=== PATIENT | male | born 1970 | race Caucasian/White ===

== ENCOUNTER 2018-04-15 13:08 | Observation (INO) ==
[2018-04-15] MEDS ORDERED: Nitroglycerin 0.4 MG TAB.SUBL SL PRN (13:36)
[2018-04-15] MEDS ORDERED: Aspirin 81 MG TAB.CHEW PO ONE (13:36)
[2018-04-15 13:55] LABS: Basophils # 0.1 K/mcL (0.0-0.2); Basophils % 0.9 %; Eosinophils # 0.1 K/mcL (0.0-0.6); Eosinophils % 0.9 %; Hematocrit 46.9 % (37.5-50.1); Hemoglobin 16.2 g/dL (12.9-16.9); Immature Granulocytes % 0.3 % (0-4); Lymphocytes % 28.6 %; Mean Corpuscular HGB Conc 34.5 g/dL (31.6-35.5); Mean Corpuscular Hemoglobin 29.9 pg (28.0-33.3); Mean Corpuscular Volume 86.7 fL (83.0-100.0); Mean Platelet Volume 8.8 fL (9.4-12.4); Monocytes # 0.7 K/mcL (0.0-1.3); Monocytes % 10.2 %; Neutrophils # 4.1 K/mcL (1.6-8.9); Platelet Count 254 K/mcL (140-400); Red Blood Count 5.41 M/mcL (4.19-5.50); Red Cell Distribution Width 13.5 % (11.5-14.5); Segmented Neutrophils % 59.1 %
[2018-04-15 14:17] LABS: BUN/Creatinine Ratio 17 (6-26); Blood Urea Nitrogen 19 mg/dL (6-20); Calcium 9.7 mg/dL (8.6-10.3); Carbon Dioxide 24 mEq/L (23-29); Chloride 102 mEq/L (98-107); Glucose 115 mg/dL (70-105); Osmolality,Calculated 281 (280-300); Potassium 4.5 mEq/L (3.5-5.1); Sodium 134 mEq/L (136-145); Troponin I < 0.03 ng/mL (< 0.04); eGFR For Non-African Americans > 60 (> 60)
--- NOTE | 2018-04-15 14:21 | Emergency Department Note ---
Disposition Clinical Impression: Chest pain Qualifiers: Chest pain type: unspecified Qualified Code(s): R07.9 - Chest pain, unspecified Disposition: Admitted As Inpatient Condition: Good Forms: ED Satisfaction Letter Time of Disposition: 15:45 Chest Pain HPI - General Chief Complaint: ED Chest Pain Stated Complaint: chest pain Time Seen by Provider: 04/15/18 13:15 Source: patient Mode of arrival: ambulatory Limitations: no limitations Vital Signs Reviewed: Yes Nursing Notes Reviewed: Yes - History of Present Illness HPI Narrative: 47 yo male presents from home with the complaint of chest pain. He sees Dr. Marlene Mahmood for cardiology and has been diagnosed with stable angina with a negative stress test done last year. He states his intermittent chest pain has been getting more frequent and severe over the past few weeks. He states today he was having some chest pain this morning with left arm numbness and tightness. He took a SL nitro and baby aspirin which helped his chest pain but did not rel trey his arm tightness. After resting he tried doing some house work which caused his chest pain to come back. He has felt nauseous and vomited once. He is currently chest pain free and denies diaphoresis, abdominal pain. His arm is still tight. He was seen here two days ago for this same problem and had a normal cardiac workup and was sent home to follow up with Cardiology. Severity scale (1-10): 1 - Related Data Home Medications Medication Instructions Recorded Confirmed Ferrous Sulfate 325 mg PO BIDWM 03/14/15 04/25/15 Gabapentin [Neurontin] 100 mg PO TID 03/14/15 10/27/15 HydrOXYzine 50 mg PO Q8H PRN 03/14/15 10/27/15 OLANZapine [Zyprexa] 20 mg PO DAILY 03/14/15 10/27/15 Quetiapine Fumarate [SEROquel] 100 mg PO HS PRN 03/14/15 10/27/15 Previous Rx's Medication Instructions Recorded Folic Acid 1 mg PO DAILY #90 tablet 07/27/15 Allergies Allergy/AdvReac Type Severity Reaction Status Date / Time No Known Allergies Allergy Verified 03/14/15 08:54 All systems ED: reviewed and negative except as stated. Review of Systems: As Per HPI Constitutional: Denies: fever, chills, weakness Eyes: Denies: vision change Cardiovascular: Reports: chest pain. Denies: palpitations, dyspnea on exertion, edema, syncope Respiratory: Denies: cough, dyspnea, wheezes Gastrointestinal: Reports: nausea, vomiting. Denies: abdominal pain, diarrhea, constipation Genitourinary: Denies: dysuria Musculoskeletal: Denies: back pain, neck pain Integumentary: Denies: rash Neurological: Denies: headache, weakness, numbness Psychiatric: Denies: anxiety Endocrine: Denies: fatigue Chest Pain PMH - Past Medical History Medical history: Reports: hypertension Psychiatric history: Reports: no psych history - Social History Smoking Status: Former smoker Alcohol use: Reports: none Drug use: Reports: none Physical Exam - General Limitations: no limitations General appearance: alert, in no apparent distress - Head Head exam: atraumatic, normocephalic - Eye Eye exam: Present: normal appearance, PERRL, EOMI - ENT ENT exam: normal exam, normal oropharynx, mucous membranes moist - Neck Neck exam: Present: normal inspection. Absent: tenderness, meningismus, lymphadenopathy - Chest Chest inspection: Present: normal inspection, symmetric chest wall rise, tenderness - Respiratory Respiratory exam: Present: normal lung sounds bilaterally. Absent: wheezes, stridor - Cardiovascular Cardiovascular exam: Present: regular rate, normal rhythm - Abdominal Exam Abdominal exam: Present: soft, Non-Tender. Absent: distention, guarding, rebound, rigidity - Extremities Exam Extremities exam: Present: normal inspection. Absent: tenderness, pedal edema - Neurological Exam Neurological exam: Present: alert, oriented X3, CN II-XII intact - Psychiatric Psychiatric exam: Present: anxious, flat affect - Skin Skin exam: Present: warm, dry, intact Course Vital Signs Temperature 97.6 F 04/15/18 13:10 Pulse Rate 70 04/15/18 13:10 Respiratory Rate 14 04/15/18 13:10 Blood Pressure 125/85 04/15/18 13:10 O2 Sat by Pulse Oximetry 95 04/15/18 13:10 Temperature 97.6 F 04/15/18 13:28 Pulse Rate 71 04/15/18 14:08 Respiratory Rate 14 04/15/18 14:08 Blood Pressure 123/93 04/15/18 14:08 O2 Sat by Pulse Oximetry 97 04/15/18 14:08 Oxygen Delivery Oxygen Delivery Room Air Chest Pain - MDM Narrative Medical decision making narrative: This patient has a history of stable angina with a negative workup 2 days ago. Will do another ACS workup and contact cardiology to discuss further treatment. 1510 - EKG unchanged. Lab work wnl. CXR shows no cardiopulmonary disease. Will repeat EKG as pt is still having chest pain. Call out to cardio has been placed. 1545 - Dr. Mahmood was informed of this patient and wishes to have him admitted to be seen tomorrow for evaluation for diagnostic cath. Dr. Sena has accepted the patient. Pt agrees with POC. - Medical Records Medical records reviewed: Yes I reviewed the patient's medical records. - Lab Data Lab results reviewed: Yes I reviewed the patient's lab results. Result diagrams: 04/15/18 13:36 04/15/18 13:30 Lab Results 04/15/18 04/15/18 Range/Units 13:30 13:36 WBC 6.9 (4.3-11.1) K/mcL RBC 5.41 (4.19-5.50) M/mcL Hgb 16.2 (12.9-16.9) g/dL Hct 46.9 (37.5-50.1) % MCV 86.7 (83.0-100.0) fL MCH 29.9 (28.0-33.3) pg MCHC 34.5 (31.6-35.5) g/dL RDW 13.5 (11.5-14.5) % Plt Count 254 (140-400) K/mcL MPV 8.8 L (9.4-12.4) fL Immature Gran % 0.3 (0-4) % Seg Neutrophils % 59.1 % Lymphocytes % 28.6 % Monocytes % 10.2 % Eosinophils % 0.9 % Basophils % 0.9 % Neutrophils # 4.1 (1.6-8.9) K/mcL Lymphocytes # 2.0 (0.6-4.6) K/mcL Monocytes # 0.7 (0.0-1.3) K/mcL Eosinophils # 0.1 (0.0-0.6) K/mcL Basophils # 0.1 (0.0-0.2) K/mcL Sodium 134 L (136-145) mEq/L Potassium 4.5 (3.5-5.1) mEq/L Chloride 102 (98-107) mEq/L Carbon Dioxide 24 (23-29) mEq/L BUN 19 (6-20) mg/dL Creatinine 1.15 (0.70-1.30) mg/dL Est GFR ( Amer) > 60 (> 60) Est GFR (Non-Af Amer) > 60 (> 60) BUN/Creatinine Ratio 17 (6-26) Glucose 115 H (70-105) mg/dL Calculated Osmolality 281 (280-300) Calcium 9.7 (8.6-10.3) mg/dL Troponin I < 0.03 (< 0.04) ng/mL - Radiology Data Radiology results reviewed: Yes I reviewed the patient's radiology results. - EKG Data EKG attestation: Yes I reviewed and interpreted this EKG. EKG results narrative: EKG done at 1336 on 04/15/2018 HR 64 bpm, DC interval 170, QRS duration 84, QT 386, QTc 399 Sinus rhythm without any ST segment elevations or depressions. No eveidence of acute ischemia or arrythmias. Unchanged from EKG done on 04/13/2018. Heart Score - Score History: Moderately Suspicious EKG: Normal Age: 45-65 Risk Factors: Equal/Greater than 3 risk factor or history of atherosclerotic disease Troponin: Less than normal limit HEART Score Total: 4
[2018-04-15] MEDS ORDERED: traMADol 50 MG TABLET PO PRN (16:04)
[2018-04-15] MEDS ORDERED: Naloxone 0.4 MG/ML INJ IVP PRN (16:04)
[2018-04-15 16:31] LABS: Alanine Aminotransferase 69 Units/L (7-52); Albumin 4.4 g/dL (3.5-5.7); Albumin/Globulin Ratio 1.3 (1.1-2.2); Alkaline Phosphatase 62 Units/L (34-104); Aspartate Amino Transferase 30 Units/L (13-39); Bilirubin,Direct 0.1 mg/dL (0.0-0.2); Bilirubin,Indirect 0.4 mg/dL (0.0-1.2); Bilirubin,Total 0.5 mg/dL (0.3-1.0); Chol/HDL Ratio 5.8 (0-4.9); Cholesterol 208 mg/dL (< 200); Globulin 3.4 g/dL (2.4-3.5); HDL Cholesterol 36 mg/dL (40-59); LDL Cholesterol,Calculated 149 mg/dL (0-99); Phosphorous 2.4 mg/dL (2.7-4.5); Total Protein 7.8 g/dL (6.4-8.9); Triglycerides 113 mg/dL (< 150)
--- NOTE | 2018-04-15 16:38 | Electrocardiograph Report ---
[place] [facility] Test Date: 2018-04-15 Pat Name: Ross Hernandez Department: EXAMC5 Room: 3B34 Gender: M Qualification Engineer: : 1970 Requested By: Ksenia Lira Order Number: [id number] Reading MD: Familia Dozier Measurements Intervals [place] Rate: 64 P: 43 [place]: 170 QRS: 45 QRSD: 84 T: 19 QT: 386 QTc: 399 Interpretive Statements Sinus rhythm Electronically Signed On 04-15-2018 16:36:50 EST by Familia Dozier
--- NOTE | 2018-04-15 16:43 | Internal Med History&Physical ---
Date of Encounter: 04/15/18 Time of Encounter: 16:33 Internal Medicine - H&P: HPI Chief complaint: chest pain Plans for Post Hospital Care: Home History of present illness: Mr. Hernandez is a 47 year old male PMH of HTN, pre-diabetes, GERD and dep ression. Patient presented to the ED due to a week long history of chest pain. Patient reports that for the past week he has been having pressure like, 8/10, retrosternal chest pain, radiating to his left shoulder, associated with shortness of breath, lasting about 20 minutes and alleviated by Nitroglycerin SubL. He reports that he has been to the ED about 5 times this week for the same complain. Today he decided to come back to the ED because the pain lasted more than 30 minutes, was not alleviated by nitroglycerin SubL and was associated with diaphoresis, numbness and tingling of the left upper extremities. He denies nausea or vomiting. Denies recreational drug use, as well alcohol, or tobacco abuse. Past Med Surg Social Fam HX - Past Medical History Medical history: hypertension Psychiatric history: no psych history - Social History Smoking Status: Former smoker Smokeless Tobacco Status: No Alcohol use: none Drug use: none Internal Medicine - H&P: Meds Ferrous Sulfate 325 mg PO BIDWM 03/14/15 [History] Gabapentin [Neurontin] 100 mg PO TID 03/14/15 [History] HydrOXYzine 50 mg PO Q8H PRN 03/14/15 [History] OLANZapine [Zyprexa] 20 mg PO DAILY 03/14/15 [History] Quetiapine Fumarate [SEROquel] 100 mg PO HS PRN 03/14/15 [History] Folic Acid 1 mg PO DAILY #90 tablet 07/27/15 [Rx] Allergy/AdvReac Type Severity Reaction Status Date / Time No Known Allergies Allergy Verified 03/14/15 08:54 All Systems PM: A 10-system review of systems was performed and is negative for pertinent findings except as documented above in the HPI. - Constitutional Constitutional: no chills, no falls, no lethargy, no weakness, no weight gain, no weight loss - EENT Eyes: no decreased night vision, no diplopia, no dry eye, no pain - Cardiovascular Cardiovascular ROS IM: chest pain, diaphoresis, no claudication, no dyspnea on exertion, no edema, no irregular heart rhythm, no lightheadedness, no orthopnea, no palpitations, no paroxysmal nocturnal dyspnea - Respiratory Respiratory: no cough, no wheezing, no snoring, no pain on inspiration - Gastrointestinal Gastrointestinal: constipation, no abdominal pain, no diarrhea, no loose stools, no odynophagia - Genitourinary Genitourinary ROS male: no dysuria, no urinary frequency, no urinary hesitancy, no urinary incontinence, no urinary urgency - Musculoskeletal Musculoskeletal ROS IM: no atrophy, no back pain - Integumentary Integumentary IM: no erythema - Neurological Neurological ROS: no lack of coordination, no vertigo, no weakness - Psychiatric Psychiatric: no anxiety, no hallucinations, no homicidal ideation - Endocrine Endocrine IM: no fatigue, no flushing, no polydipsia, no polyphagia, no polyuria - Hematologic/Lymphatic Hematologic/Lymphatic: no lymphadenopathy - Allergic/Immunologic Allergic/Immunologic: no wheezing Additional comments: Rest of the review of system negative. - Constitutional Vitals: Temp Pulse Resp BP Pulse Ox 97.6 F 59 14 116/79 98 04/15/18 13:28 04/15/18 15:21 04/15/18 15:21 04/15/18 15:21 04/15/18 15:21 General appearance: Present: A&O X 2 Exam: Vitals: Reviewed General: Alert and oriented x4. Mild distress due to chest pain. Skin: Normal color, no rash, no lesions. HEENT: EOM, pupils equal, round and reactive. Cardiovascular: RRR, Normal S1 & S2, no rubs, murmurs or gallops. Lungs: CTA b/l, no wheezes or crackles. Abdomen: Soft, non-tender, no rigidity. Extremities: No deformity, no edema or tenderness, no joint swelling or clubbi ng. strength 5/5 in the upper and lower extr b/l. Neurological: Normal cognition and motor skills. Rest of the physical exam is non contributory Internal Med - H&P Results - Labs CBC & Chem 7: 04/15/18 13:36 04/15/18 13:30 Labs: Short CBC 04/15/18 Range/Units 13:36 WBC 6.9 (4.3-11.1) K/mcL Hgb 16.2 (12.9-16.9) g/dL Hct 46.9 (37.5-50.1) % Plt Count 254 (140-400) K/mcL Neutrophils # 4.1 (1.6-8.9) K/mcL BMP 04/15/18 13:30 Sodium 134 L Potassium 4.5 Chloride 102 Carbon Dioxide 24 BUN 19 Creatinine 1.15 Glucose 115 H Calcium 9.7 Cardiac Enzymes 04/15/18 Range/Units 13:30 Troponin I < 0.03 (< 0.04) ng/mL Liver Function 04/15/18 Range/Units 13:30 Total Bilirubin 0.5 (0.3-1.0) mg/dL Direct Bilirubin 0.1 (0.0-0.2) mg/dL AST 30 (13-39) Units/L ALT 69 H (7-52) Units/L Alkaline Phosphatase 62 (34-104) Units/L Albumin 4.4 (3.5-5.7) g/dL - Impressions ITS Impressions Chest X-Ray 04/15/18 13:35 IMPRESSION: Clear appearing lungs. Low lung volumes. No acute abnormality. D/ / Amandeep Nguyen MD / Amandeep Nguyen MD Interpreting Provider: Amandeep Nguyen MD - Diagnostic Studies Chest x-ray Status: image reviewed by me Additional comments: No abnormalities - Assessment and plan (1) Chest pain Current Visit: Yes Status: Acute Assessment and plan: Patient with chest pain, with multiple cardiovascular risk factors. will place patient under observation started on a bb Aspirin 325mg/PO x1 given, followed by aspirin 81mg/PO daily lipid panel Nuclear stress test order urine drug screen Limited TTE to evaluate wall motion abnormalities and valvular disfunction serial troponins will consider cardiology consult pending ischemic work up result. Nitroglycerin 0.4mg SubL Q5min x3 for chest pain tramadol 50mg/PO Q6HR PRN atorvastatin 40mg/PO daily Qualifiers: Chest pain type: unspecified Qualified Code(s): R07.9 - Chest pain, unspecified (2) Hypertension Current Visit: Yes Status: Chronic Assessment and plan: will resume home medication. Patient on Metoprolol 50mg/PO daily Qualifiers: Hypertension type: unspecified Qualified Code(s): I10 - Essential (primary) hypertension (3) DVT prophylaxis Current Visit: Yes Status: Acute Assessment and plan: started on Heparin 5000 units SubQ Q8HRs - Time Spent With Patient Total time spent is greater than 50% in coordination of care (as documented) at patient's floor/unit and/or counseling patient: Greater than 35 minutes (40)
[2018-04-15 17:05] LABS: Estimated Average Glucose 128 mg/dl; Hemoglobin A1C 6.1 %
[2018-04-15] MEDS: Metoprolol XL (24 HR) Succ 50 MG TAB.ER.24H PO SCH (17:33)
--- NOTE | 2018-04-15 17:34 | Emergency Department Note ---
Disposition Clinical Impression: Chest pain Qualifiers: Chest pain type: unspecified Qualified Code(s): R07.9 - Chest pain, unspecified Disposition: Admitted As Inpatient Condition: Good General Adult HPI - General Chief complaint: ED Chest Pain Stated complaint: chest pain Time Seen by Provider: 04/15/18 13:15 Source: patient Mode of arrival: ambulatory Limitations: no limitations - History of Present Illness Pain Scale: 1 - Related Data Home Medications Medication Instructions Recorded Confirmed Ferrous Sulfate 325 mg PO BIDWM 03/14/15 04/25/15 Gabapentin [Neurontin] 100 mg PO TID 03/14/15 10/27/15 HydrOXYzine 50 mg PO Q8H PRN 03/14/15 10/27/15 OLANZapine [Zyprexa] 20 mg PO DAILY 03/14/15 10/27/15 Quetiapine Fumarate [SEROquel] 100 mg PO HS PRN 03/14/15 10/27/15 Previous Rx's Medication Instructions Recorded Folic Acid 1 mg PO DAILY #90 tablet 07/27/15 Allergies Allergy/AdvReac Type Severity Reaction Status Date / Time No Known Allergies Allergy Verified 03/14/15 08:54 Constitutional: Denies: fever, chills, weakness Eyes: Denies: vision change Cardiovascular: Reports: chest pain. Denies: palpitations, dyspnea on exertion, edema, syncope Respiratory: Denies: cough, dyspnea, wheezes Gastrointestinal: Reports: nausea, vomiting. Denies: abdominal pain, diarrhea, constipation Genitourinary: Denies: dysuria Musculoskeletal: Denies: back pain, neck pain Integumentary: Denies: rash Neurological: Denies: headache, weakness, numbness Psychiatric: Denies: anxiety Endocrine: Denies: fatigue Past Medical History - Past Medical History Medical history: Reports: hypertension Psychiatric history: Reports: no psych history - Social History Smoking Status: Former smoker Smokeless Tobacco Status: No Alcohol use: Reports: none Drug use: Reports: none Physical Exam - General Limitations: no limitations General appearance: alert, in no apparent distress Course Vital Signs Temperature 97.6 F 04/15/18 13:10 Pulse Rate 70 04/15/18 13:10 Respiratory Rate 14 04/15/18 13:10 Blood Pressure 125/85 04/15/18 13:10 O2 Sat by Pulse Oximetry 95 04/15/18 13:10 Temperature 98.3 F 04/15/18 16:51 Pulse Rate 63 04/15/18 16:51 Respiratory Rate 16 04/15/18 16:51 Blood Pressure 117/83 04/15/18 16:51 O2 Sat by Pulse Oximetry 95 04/15/18 16:51 Oxygen Delivery Oxygen Delivery Room Air Medical Decision Making - Lab Data Result diagrams: 04/15/18 13:36 04/15/18 13:30 Lab Results 04/15/18 04/15/18 Range/Units 13:30 13:36 WBC 6.9 (4.3-11.1) K/mcL RBC 5.41 (4.19-5.50) M/mcL Hgb 16.2 (12.9-16.9) g/dL Hct 46.9 (37.5-50.1) % MCV 86.7 (83.0-100.0) fL MCH 29.9 (28.0-33.3) pg MCHC 34.5 (31.6-35.5) g/dL RDW 13.5 (11.5-14.5) % Plt Count 254 (140-400) K/mcL MPV 8.8 L (9.4-12.4) fL Immature Gran % 0.3 (0-4) % Seg Neutrophils % 59.1 % Lymphocytes % 28.6 % Monocytes % 10.2 % Eosinophils % 0.9 % Basophils % 0.9 % Neutrophils # 4.1 (1.6-8.9) K/mcL Lymphocytes # 2.0 (0.6-4.6) K/mcL Monocytes # 0.7 (0.0-1.3) K/mcL Eosinophils # 0.1 (0.0-0.6) K/mcL Basophils # 0.1 (0.0-0.2) K/mcL Sodium 134 L (136-145) mEq/L Potassium 4.5 (3.5-5.1) mEq/L Chloride 102 (98-107) mEq/L Carbon Dioxide 24 (23-29) mEq/L BUN 19 (6-20) mg/dL Creatinine 1.15 (0.70-1.30) mg/dL Est GFR ( Amer) > 60 (> 60) Est GFR (Non-Af Amer) > 60 (> 60) BUN/Creatinine Ratio 17 (6-26) Glucose 115 H (70-105) mg/dL Calculated Osmolality 281 (280-300) Calcium 9.7 (8.6-10.3) mg/dL Phosphorus 2.4 L (2.7-4.5) mg/dL Magnesium 2.0 (1.6-2.6) mg/dL Total Bilirubin 0.5 (0.3-1.0) mg/dL Direct Bilirubin 0.1 (0.0-0.2) mg/dL Indirect Bilirubin 0.4 (0.0-1.2) mg/dL AST 30 (13-39) Units/L ALT 69 H (7-52) Units/L Alkaline Phosphatase 62 (34-104) Units/L Troponin I < 0.03 (< 0.04) ng/mL Serum Total Protein 7.8 (6.4-8.9) g/dL Albumin 4.4 (3.5-5.7) g/dL Globulin 3.4 (2.4-3.5) g/dL Albumin/Globulin Ratio 1.3 (1.1-2.2) Triglycerides 113 (< 150) mg/dL Cholesterol 208 H (< 200) mg/dL LDL Cholesterol, Calc 149 H (0-99) mg/dL VLDL Cholesterol, Calc 23 (< 31) mg/dL HDL Cholesterol 36 L (40-59) mg/dL Cholesterol/HDL Ratio 5.8 H (0-4.9) Attestation Statement - Attestation Attestation: I examined this patient and my medical decision-making [facility]. I agree with the documented findings, disposition and treatment plan as described except to the extent set forth below. Patient with history of 2 prior negative stress test despite recurrent chest pain, never has had a heart catheterization, presents with chest pain which is moderately suspicious for ischemia with radiation to his neck and shoulder, worse with exertion. Pain-free at the time of my evaluation. Normal EKG and negative troponin. This is a second visit in the last 48 hours. I spoke with the engagement director on-call for Dr. Mahmood, who is evaluated him in the past. Given the recurrent nature of his pain and his history of never having had his coronaries visualized by catheter, she recommended admission, serial troponins and evaluation by cardiology to assess for whether or not a catheterization would be indicated. Accepted by hospitalist.
[2018-04-15 18:56] LABS: Amphetamine Screen,Urine Negative ng/mL (Cutoff=1000); Barbiturate Screen,Urine Negative ng/mL (Cutoff=200); Benzodiazepines Screen,Urine Negative ng/mL (Cutoff=200); Cannabinoid Screen,Urine Negative ng/mL (Cutoff = 50); Cocaine Screen,Urine Negative ng/mL (Cutoff= 300); Opiate Screen,Urine Negative ng/mL (Cutoff=300); Phencyclidine Screen,Urine Negative ng/mL (Cutoff=25)
[2018-04-15] MEDS: *HR* Heparin 5,000 UNIT/ML VIAL SQ SCH (20:43)
[2018-04-15] MEDS ORDERED: hydrOXYzine pamoate 25 MG CAPSULE PO PRN (21:04)
[2018-04-15] MEDS ORDERED: *HR* LORazepam 0.5 MG TABLET PO PRN (21:04)
[2018-04-16 01:48] LABS: BUN/Creatinine Ratio 16 (6-26); Blood Urea Nitrogen 17 mg/dL (6-20); Calcium 9.1 mg/dL (8.6-10.3); Carbon Dioxide 24 mEq/L (23-29); Chloride 102 mEq/L (98-107); Glucose 96 mg/dL (70-105); Osmolality,Calculated 285 (280-300); Potassium 4.3 mEq/L (3.5-5.1); Sodium 137 mEq/L (136-145); eGFR For Non-African Americans > 60 (> 60)
[2018-04-16 04:02] VITALS: BP 114/67
[2018-04-16] MEDS: *HR* Heparin 5,000 UNIT/ML VIAL SQ SCH (05:30)
[2018-04-16] MEDS ORDERED: Regadenoson 0.4 MG/5 ML SYRINGE IVP ONE (05:40)
[2018-04-16] MEDS ORDERED: Famotidine 20 MG TABLET PO SCH (07:30)
[2018-04-16] MEDS ORDERED: OLANZapine 10 MG TAB.RAPDIS PO SCH (09:00)
[2018-04-16] MEDS ORDERED: Aspirin Enteric Coated 81 MG Tablet PO SCH (09:00)
[2018-04-16] MEDS: Metoprolol XL (24 HR) Succ 50 MG TAB.ER.24H PO SCH (09:24)
--- NOTE | 2018-04-16 12:00 | Discharge Summary ---
- NOTES TO OUTPATIENT PROVIDER Notes to Outpatient Provider: Presented with chest pressure off and on for a week as well as left arm pain. Troponins negative [address]-T wave abnormalities he did undergo cardiac stress test which was negative for any ischemia or infarct-patient does admit to back pain and does need a back hipolito angelo. Advised patient to follow-up with PCP as well as cardiology and spinal surgeon Orders not resulted at time of discharge: Pending orders 04/16/18 05:27 NM felicia perf SPECT multi [NM] Routine Date of Encounter: 04/16/18 Time of Encounter: 12:00 - Discharge Diagnosis (1) Chest pain Priority: Primary Status: Acute Qualifiers: Chest pain type: unspecified Qualified Code(s): R07.9 - Chest pain, unspecified (2) Hypertension Priority: Secondary Status: Chronic Qualifiers: Hypertension type: unspecified Qualified Code(s): I10 - Essential (primary) hypertension (3) DVT prophylaxis Priority: Secondary Status: Acute Hospital course: Mr. Hernandez is a 47 year old male past medical history of hypertension prediabetes GERD and depression. Patient presented after experiencing chest pain radiating to left shoulder off and on for one week as well as left arm pain numbness and tingling. Troponins were negative [address]-T wave abnormalities. Underwent cardiac stress test which was negative for any ischemia or infarct echo was completed EF of 60% and normal LV chamber size normal right ventricular structure and function normal size aortic root. Patient has not had any more chest pain during this admission. Patient does admit that he does have history of GERD and has not been taking medication. Advised patient to follow-up with PCP schedule EGD as outpatient. Patient also admits that he does have neck and back pain and is to undergo spinal surgery. Patient does have pain in left arm and shoulder upon movement and raising arm. Advised patient to follow-up with spinal surgeon as outpatient. Also advised patient follow-up with cardiology. Patient verbalized understanding currently he is hemodynamically stable and is chest pain-free he is ready for discharge. - Time Spent with Patient Total time spent providing and/or coordinating discharge services: - Discharge Medications Home Medications: HydrOXYzine 50 mg PO Q8H PRN 03/14/15 [History] OLANZapine [Zyprexa] 20 mg PO DAILY 03/14/15 [History] Quetiapine Fumarate [Seroquel] 100 mg PO HS PRN 03/14/15 [History] LORazepam [Ativan] 0.5 mg PO BID PRN 04/15/18 [History] Metoprolol [Lopressor] 50 mg PO BID 04/15/18 [History] Promethazine HCl 25 mg PO BID 04/15/18 [History] Ranitidine HCl [Heartburn Relief] 150 mg PO BID 04/15/18 [History] Cholecalciferol (Vitamin D3) [Vitamin D3] 10,000 unit PO DAILY 04/16/18 [History] Allergies/Adverse Reactions: Allergy/AdvReac Type Severity Reaction Status Date / Time No Known Allergies Allergy Verified 03/14/15 08:54 Date of admission: 04/15/18 15:34 Primary care physician: Teri Alcala MD Discharging clinician: Ciara Erazo Anticipated date of discharge: 04/16/18 - Constitutional Vitals: Temp Pulse Resp BP Pulse Ox 98.0 F 63 16 114/67 94 04/16/18 03:59 04/16/18 03:59 04/16/18 03:59 04/16/18 03:59 04/16/18 03:59 General appearance: Present: A&O X 2 Exam: GENERAL: Pleasant cooperative alert and oriented 3 HEENT: Head is normocephalic and atraumatic. Extraocular muscles are intact. Pupils are equal, round, and reactive to light and accommodation. NECK: Supple. No carotid bruits. No lymphadenopathy or thyromegaly. LUNGS: CTA, symmetrical expansion. Respirations easy and unlabored HEART: Regular rate and rhythm, S1, S2 without murmur. ABDOMEN: Soft, nontender, and nondistended. Positive bowel sounds. No hepatosplenomegaly was noted. EXTREMITIES: Without any cyanosis, clubbing, rash, lesions or edema. NEUROLOGIC: Cranial nerves II through XII are grossly intact. PSYCHIATRIC: Appropriate affect, denies SI/HI, without agitation or anxiety SKIN: No ulceration or induration present. - Patient Status Disposition: Home, Self-Care Condition: Good Functional capacity at discharge: independent ambulation Overall status at discharge: patient is back to baseline - Discharge Instructions Instructions: Chest Pain (DC) Follow Up With: Teri Alcala MD [Primary Care Provider] - 04/23/18 9:20 am - Diet and Activity Activity: increase activity as tolerated Diet: advance to your usual diet
--- NOTE | 2018-04-16 12:30 | Electrocardiograph Report ---
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
== END 2018-04-16 15:20 | disposition home or self-care (01) ==
LOC: EMEROOARM 13:08 → 3BNU 13:08
PROVIDERS: ADMIT Internal Medicine; ATTEND Internal Medicine

== ENCOUNTER 2018-04-20 17:29 | Observation (INO) ==
--- NOTE | 2018-04-20 18:08 | Emergency Department Note ---
Disposition Clinical Impression: Unstable angina Chest pain Qualifiers: Chest pain type: unspecified Qualified Code(s): R07.9 - Chest pain, unspecified Disposition: Admitted As Inpatient Condition: Undetermined Instructions: Chest Pain (ED) Forms: ED Satisfaction Letter Time of Disposition: 19:32 Chest Pain HPI - General Chief Complaint: ED Chest Pain Stated Complaint: chest pain Time Seen by Provider: 04/20/18 17:33 - History of Present Illness HPI Narrative: 47-year-old male presenting to the emergency department for chest pain rating to his left arm. Patient was recently discharged from the hospital yesterday where he had a full chest pain workup including echocardiogram and nuclear stress test which were both normal. Patient states that he felt fine after his discharge, the day he went for a walk and during the walk he did not experience any chest pain or shortness of breath. However, when he got home and was sitting on his couch resting he experienced substernal chest pain which was dull and pressure- like radiating to his left shoulder and left arm. This was associated with shortness of breath, nausea, and diaphoresis. There was no pleuritic component to his pain, and no tenderness to palpation of the chest pain. Patient states that he does have chronic back pain however his chest pain does not radiate to his back. 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 Severity scale (1-10): 6 - Related Data Home Medications Medication Instructions Recorded Confirmed HydrOXYzine 50 mg PO Q8H PRN 03/14/15 04/16/18 OLANZapine [Zyprexa] 20 mg PO DAILY 03/14/15 04/16/18 Quetiapine Fumarate [Seroquel] 100 mg PO HS PRN 03/14/15 04/16/18 LORazepam [Ativan] 0.5 mg PO BID PRN 04/15/18 04/16/18 Metoprolol [Lopressor] 50 mg PO BID 04/15/18 04/16/18 Promethazine HCl 25 mg PO BID 04/15/18 04/16/18 Ranitidine HCl [Heartburn Relief] 150 mg PO BID 04/15/18 04/16/18 Cholecalciferol (Vitamin D3) 10,000 unit PO DAILY 04/16/18 04/16/18 [Vitamin D3] Allergies Allergy/AdvReac Type Severity Reaction Status Date / Time No Known Allergies Allergy Verified 03/14/15 08:54 Constitutional: Denies: fever, chills Eyes: Denies: vision change ENT ED: Denies: hearing loss Cardiovascular: Reports: chest pain. Denies: palpitations Respiratory: Reports: dyspnea Gastrointestinal: Reports: nausea. Denies: abdominal pain, vomiting Genitourinary: Denies: dysuria Musculoskeletal: Reports: back pain Chest Pain PMH - Past Medical History Medical history: Reports: hypertension Psychiatric history: Reports: no psych history - Social History Smoking Status: Former smoker Alcohol use: Reports: none Drug use: Reports: none Physical Exam - General Limitations: no limitations General appearance: alert, in no apparent distress - Head Head exam: atraumatic, normocephalic - Eye Eye exam: Present: normal appearance - Neck Neck exam: Present: normal inspection, trachea midline - Chest Chest inspection: Present: normal inspection, symmetric chest wall rise - Respiratory Respiratory exam: Present: normal lung sounds bilaterally. Absent: wheezes - Cardiovascular Cardiovascular exam: Present: regular rate, normal rhythm, +S1, +S2 - Abdominal Exam Abdominal exam: Present: soft, Non-Tender. Absent: guarding, rigidity - Extremities Exam Extremities exam: Present: normal inspection - Neurological Exam Neurological exam: Present: alert, oriented X3 - Psychiatric Psychiatric exam: Present: normal affect, normal mood - Skin Skin exam: Present: warm, dry, intact Course Course Narrative: 47-year-old male presented to the emergency department with substernal chest pain radiating to his left arm. Patient was recently admitted the hospital underwent full cardiac workup which was negative. Will obtain CBC, BMP, chest x-ray and troponin today. Given the patient is continuing to have chest pain symptoms and endorses that he has had prior DVTs we will obtain a d-dimer. 18:53 D-dimer was elevated with a value greater than 1100. Will obtain CTA chest. Vital Signs Temperature 97.5 F L 04/20/18 17:35 Pulse Rate 57 04/20/18 17:35 Respiratory Rate 16 04/20/18 17:35 Blood Pressure 130/78 04/20/18 17:35 O2 Sat by Pulse Oximetry 95 04/20/18 17:35 Temperature 97.5 F L 04/20/18 17:45 Pulse Rate 57 04/20/18 17:45 Respiratory Rate 16 04/20/18 17:45 Blood Pressure 130/78 04/20/18 17:45 O2 Sat by Pulse Oximetry 95 04/20/18 17:45 Oxygen Delivery Oxygen Delivery Room Air Chest Pain - MDM Narrative Medical decision making narrative: 47-year-old male presented to the emergency department for 2 hour history of chest pain. Patient was recently discharged from the hospital yesterday and during his stay he had a complete chest pain workup including echo and nuclear stress test but not cardiac catheterization. Patient presented to the emergency department today for persistent chest pain which occurred shortly after he went for a walk. This was associated with shortness of breath, nausea, and diaphoresis. Workup chest pain was negative for any acute cardiopulmonary disease. D-dimer was elevated however CTA chest was negative for any acute PE. Spoke with caramel cutter helper regarding admission and the possibility of performing cardiac catheterization, caramel cutter helper agreed that this was an acceptable next step for this patient. Patient will be admitted to the hospital in stable condition he will receive aspirin and nitroglycerin prior to his admission and we will repeat troponin. We will also begin heparin per ACS protocol per hospitalist recommendations. Chest X-Ray 04/20/18 17:33 IMPRESSION: 1. No acute abnormality. D/ / Kyle Sims MD / Kyle Sims MD Interpreting Provider: Kyle Sims MD Chest CTA 04/20/18 18:43 IMPRESSION: No evidence of pulmonary embolism or acute pulmonary abnormality. Fatty liver. D/ / Abhinav Moreno / Abhinav Moreno Interpreting Provider: Abhinav Moreno - Medical Records Medical records reviewed: Yes I reviewed the patient's medical records. - Lab Data Lab results reviewed: Yes I reviewed the patient's lab results. Result diagrams: 04/20/18 17:43 04/20/18 17:43 Lab Results 04/20/18 04/20/18 04/20/18 Range/Units 17:33 17:43 17:43 WBC 5.6 (4.3-11.1) K/mcL RBC 5.34 (4.19-5.50) M/mcL Hgb 15.7 (12.9-16.9) g/dL Hct 46.4 (37.5-50.1) % MCV 86.9 (83.0-100.0) fL MCH 29.4 (28.0-33.3) pg MCHC 33.8 (31.6-35.5) g/dL RDW 13.6 (11.5-14.5) % Plt Count 250 (140-400) K/mcL MPV 8.9 L (9.4-12.4) fL Immature Gran % 0.2 (0-4) % Seg Neutrophils % 53.6 % Lymphocytes % 32.7 % Monocytes % 10.7 % Eosinophils % 2.1 % Basophils % 0.7 % Neutrophils # 3.0 (1.6-8.9) K/mcL Lymphocytes # 1.8 (0.6-4.6) K/mcL Monocytes # 0.6 (0.0-1.3) K/mcL Eosinophils # 0.1 (0.0-0.6) K/mcL Basophils # 0.0 (0.0-0.2) K/mcL PT 10.8 (9.4-12.1) Seconds INR 1.0 D-Dimer 1112 H (0-500) ng/mLFEU Sodium 137 (136-145) mEq/L Potassium 4.3 (3.5-5.1) mEq/L Chloride 104 (98-107) mEq/L Carbon Dioxide 25 (23-29) mEq/L BUN 19 (6-20) mg/dL Creatinine 1.06 (0.70-1.30) mg/dL Est GFR ( Amer) > 60 (> 60) Est GFR (Non-Af Amer) > 60 (> 60) BUN/Creatinine Ratio 18 (6-26) Glucose 97 (70-105) mg/dL Calculated Osmolality 286 (280-300) Calcium 9.7 (8.6-10.3) mg/dL Troponin I < 0.03 (< 0.04) ng/mL - Radiology Data Radiology results reviewed: Yes I reviewed the patient's radiology results. - EKG Data EKG attestation: Yes I reviewed and interpreted this EKG. EKG results narrative: EKG shows sinus bradycardia with a heart rate of 58. Normal axis late R-wave progression. Normal OR and QT intervals. No obvious ST elevation or depressions. Sinus bradycardia otherwise normal EKG. Heart Score - Score History: Moderately Suspicious EKG: Normal Age: 45-65 Risk Factors: Equal/Greater than 3 risk factor or history of atherosclerotic disease Troponin: Less than normal limit HEART Score Total: 4
[2018-04-20 18:13] LABS: Basophils % 0.7 %; Eosinophils # 0.1 K/mcL (0.0-0.6); Eosinophils % 2.1 %; Hematocrit 46.4 % (37.5-50.1); Hemoglobin 15.7 g/dL (12.9-16.9); Immature Granulocytes % 0.2 % (0-4); Lymphocytes # 1.8 K/mcL (0.6-4.6); Lymphocytes % 32.7 %; Mean Corpuscular HGB Conc 33.8 g/dL (31.6-35.5); Mean Corpuscular Hemoglobin 29.4 pg (28.0-33.3); Mean Corpuscular Volume 86.9 fL (83.0-100.0); Mean Platelet Volume 8.9 fL (9.4-12.4); Monocytes # 0.6 K/mcL (0.0-1.3); Monocytes % 10.7 %; Platelet Count 250 K/mcL (140-400); Red Blood Count 5.34 M/mcL (4.19-5.50); Red Cell Distribution Width 13.6 % (11.5-14.5); Segmented Neutrophils % 53.6 %
[2018-04-20 18:21] LABS: Prothrombin Time 10.8 Seconds (9.4-12.1)
[2018-04-20 18:35] LABS: BUN/Creatinine Ratio 18 (6-26); Blood Urea Nitrogen 19 mg/dL (6-20); Calcium 9.7 mg/dL (8.6-10.3); Carbon Dioxide 25 mEq/L (23-29); Chloride 104 mEq/L (98-107); Glucose 97 mg/dL (70-105); Osmolality,Calculated 286 (280-300); Potassium 4.3 mEq/L (3.5-5.1); Sodium 137 mEq/L (136-145); Troponin I < 0.03 ng/mL (< 0.04); eGFR For Non-African Americans > 60 (> 60)
[2018-04-20] MEDS ORDERED: Isovue-370 500 ML INFUS..BTL IV ONE (18:43)
[2018-04-20] MEDS ORDERED: GI Cocktail 40 ML EACH PO ONE (18:52)
[2018-04-20] MEDS ORDERED: Aspirin 325 MG TABLET PO ONE (19:34)
[2018-04-20] MEDS ORDERED: Nitroglycerin 0.4 MG TAB.SUBL SL PRN ×2 (19:34→21:41)
--- NOTE | 2018-04-20 19:38 | Emergency Department Note ---
Disposition Clinical Impression: Chest pain Qualifiers: Chest pain type: unspecified Qualified Code(s): R07.9 - Chest pain, unspecified Disposition: Admitted As Inpatient Condition: Undetermined Instructions: Chest Pain (ED) Referrals: Teri Alcala MD [Primary Care Provider] - Forms: ED Satisfaction Letter General Adult HPI - General Chief complaint: ED Chest Pain Stated complaint: chest pain Time Seen by Provider: 04/20/18 17:33 Source: patient Limitations: no limitations - History of Present Illness Pain Scale: 6 - Related Data Home Medications Medication Instructions Recorded Confirmed HydrOXYzine 50 mg PO Q8H PRN 03/14/15 04/16/18 OLANZapine [Zyprexa] 20 mg PO DAILY 03/14/15 04/16/18 Quetiapine Fumarate [Seroquel] 100 mg PO HS PRN 03/14/15 04/16/18 LORazepam [Ativan] 0.5 mg PO BID PRN 04/15/18 04/16/18 Metoprolol [Lopressor] 50 mg PO BID 04/15/18 04/16/18 Promethazine HCl 25 mg PO BID 04/15/18 04/16/18 Ranitidine HCl [Heartburn Relief] 150 mg PO BID 04/15/18 04/16/18 Cholecalciferol (Vitamin D3) 10,000 unit PO DAILY 04/16/18 04/16/18 [Vitamin D3] Allergies Allergy/AdvReac Type Severity Reaction Status Date / Time No Known Allergies Allergy Verified 03/14/15 08:54 Constitutional: Denies: fever, chills Eyes: Denies: vision change ENT ED: Denies: hearing loss Cardiovascular: Reports: chest pain. Denies: palpitations Respiratory: Reports: dyspnea Gastrointestinal: Reports: nausea. Denies: abdominal pain, vomiting Genitourinary: Denies: dysuria Musculoskeletal: Reports: back pain Past Medical History - Past Medical History Medical history: Reports: hypertension Psychiatric history: Reports: no psych history - Social History Smoking Status: Former smoker Smokeless Tobacco Status: No Alcohol use: Reports: none Drug use: Reports: none Physical Exam - General Limitations: no limitations General appearance: alert, in no apparent distress Course Vital Signs Temperature 97.5 F L 04/20/18 17:35 Pulse Rate 57 04/20/18 17:35 Respiratory Rate 16 04/20/18 17:35 Blood Pressure 130/78 04/20/18 17:35 O2 Sat by Pulse Oximetry 95 04/20/18 17:35 Temperature 97.5 F L 04/20/18 17:45 Pulse Rate 57 04/20/18 17:45 Respiratory Rate 16 04/20/18 17:45 Blood Pressure 130/78 04/20/18 17:45 O2 Sat by Pulse Oximetry 95 04/20/18 17:45 Oxygen Delivery Oxygen Delivery Room Air Medical Decision Making - Lab Data Result diagrams: 04/20/18 17:43 04/20/18 17:43 Lab Results 04/20/18 04/20/18 04/20/18 Range/Units 17:33 17:43 17:43 WBC 5.6 (4.3-11.1) K/mcL RBC 5.34 (4.19-5.50) M/mcL Hgb 15.7 (12.9-16.9) g/dL Hct 46.4 (37.5-50.1) % MCV 86.9 (83.0-100.0) fL MCH 29.4 (28.0-33.3) pg MCHC 33.8 (31.6-35.5) g/dL RDW 13.6 (11.5-14.5) % Plt Count 250 (140-400) K/mcL MPV 8.9 L (9.4-12.4) fL Immature Gran % 0.2 (0-4) % Seg Neutrophils % 53.6 % Lymphocytes % 32.7 % Monocytes % 10.7 % Eosinophils % 2.1 % Basophils % 0.7 % Neutrophils # 3.0 (1.6-8.9) K/mcL Lymphocytes # 1.8 (0.6-4.6) K/mcL Monocytes # 0.6 (0.0-1.3) K/mcL Eosinophils # 0.1 (0.0-0.6) K/mcL Basophils # 0.0 (0.0-0.2) K/mcL PT 10.8 (9.4-12.1) Seconds INR 1.0 D-Dimer 1112 H (0-500) ng/mLFEU Sodium 137 (136-145) mEq/L Potassium 4.3 (3.5-5.1) mEq/L Chloride 104 (98-107) mEq/L Carbon Dioxide 25 (23-29) mEq/L BUN 19 (6-20) mg/dL Creatinine 1.06 (0.70-1.30) mg/dL Est GFR ( Amer) > 60 (> 60) Est GFR (Non-Af Amer) > 60 (> 60) BUN/Creatinine Ratio 18 (6-26) Glucose 97 (70-105) mg/dL Calculated Osmolality 286 (280-300) Calcium 9.7 (8.6-10.3) mg/dL Troponin I < 0.03 (< 0.04) ng/mL Attestation Statement - Attestation Attestation: I examined this patient and my medical decision-making was reviewed with the Resident Physician. I agree with the documented findings, disposition and treatment plan as described except to the extent set forth below. 47 year old male prsents ot the Ed with complanits of chest pain and was most recently admitted for evaluation of chest pain and consideration for cardiac catherization and thought perhaps is was GI related and did not have the cardiac catheriaztion at that time. D-dimer was elecated and we obtained a CTA to rule out PE and it was negtive. We discussed yevgeniy with cardiology and they will re- consult and re-evaluate for admission to the hospital for catherization.
[2018-04-20] MEDS ORDERED: *HR* Heparin 5,000 UNIT/ML VIAL IVP ONE (19:41)
[2018-04-20] MEDS ORDERED: *HR* Heparin 5,000 UNIT/ML VIAL IVP PRN ×2 (19:41)
[2018-04-20] MEDS ORDERED: Heparin 25,000 UNIT/500 ML D5W 25,000 UNIT/500 ML BAG IVC SCH (19:45)
[2018-04-20 20:31] LABS: Hematocrit 46.6 % (37.5-50.1); Hemoglobin 15.6 g/dL (12.9-16.9); Mean Corpuscular HGB Conc 33.5 g/dL (31.6-35.5); Mean Corpuscular Hemoglobin 29.4 pg (28.0-33.3); Mean Corpuscular Volume 87.9 fL (83.0-100.0); Mean Platelet Volume 8.6 fL (9.4-12.4); Platelet Count 237 K/mcL (140-400); Red Cell Distribution Width 13.5 % (11.5-14.5)
[2018-04-20 20:40] LABS: INR 0.9; Prothrombin Time 10.5 Seconds (9.4-12.1)
[2018-04-20] MEDS ORDERED: *HR* OxyCODONE Immed Rel 5 MG TABLET PO PRN (20:49)
[2018-04-20] MEDS ORDERED: Naloxone 0.4 MG/ML INJ IVP PRN (20:49)
[2018-04-20] MEDS ORDERED: Acetaminophen 325 MG TABLET PO PRN (20:49)
[2018-04-20] MEDS ORDERED: *HR* HYDROcodone/Acet 5/325 mg TABLET PO PRN (20:49)
[2018-04-20] MEDS ORDERED: *HR* LORazepam 2 MG/ML VIAL IVP ONE (21:32)
--- NOTE | 2018-04-20 21:53 | Internal Med History&Physical ---
Date of Encounter: 04/20/18 Time of Encounter: 20:00 Internal Medicine - H&P: HPI Chief complaint: CP Admitted From: Emergency Dept Plans for Post Hospital Care: Home History of present illness: Mr. Hernandez is a 47 year old male w/PMH of HTN, GERD, and anxiety w/depression presents from the ED w/CC of CP that began this afternoon while pt. was at rest. He reports that he was just discharged 04/16 for same sx. Pt. had Echocardiogram and Stress Test during previous admission. Pt. states he went for a walk and had no pain, but returned home and started having centralized CP w/radiation to left arm that presented as pressure and was intermittent that came on while at rest. No alleviating or aggravating factors. Pt. reports nausea, SOB, and diaphoresis w/CP. Denies home O2 use. Reports quitting smoking in August 2017 after smoking 2-3 PPD. Patient denies recent illness, fever, chills, vomiting, headache, changes in vision, unusual bleeding, abdominal pain, diarrhea, constipation, dizziness, lightheadedness, numbness, tingling, pre-syncope, or syncope. Past Med Surg Social Fam HX - Past Medical History Source: patient, old records reviewed Medical history: GERD, hypertension Psychiatric history: anxiety, depression - Past Surgical History Surgical History: cholecystectomy, other Additional surgical history: LE stents - Social History Smoking Status: Former smoker Packs per day: Smoked 2-3 PPD, Reports quitting in August 2017 Smokeless Tobacco Status: No Alcohol use: none Drug use: none Current living situation: Home, With Family Activity Level: Independent ambulation Recent Out of Country Travel Within the Last 8 Weeks: No Exposure or Possible Exposure to Illness During Travel: No - Family History Mother Race: Family Member Ethnicity: Non- Living Status: Still Living Hx Family Cancer: Yes (Breast Cancer) Father Race: Family Member Ethnicity: Non- Living Status: Still Living Hx Family Cardiac Disorders: Yes (HTN, CAD) Brother Race: Family Member Ethnicity: Non- Living Status: Still Living Hx Family Cardiac Disorders: Yes (HTN) Sister Race: Family Member Ethnicity: Non- Living Status: Still Living Hx Family Medical Disorders: No Internal Medicine - H&P: Meds HydrOXYzine 50 mg PO Q8H PRN 03/14/15 [History] OLANZapine [Zyprexa] 20 mg PO DAILY 03/14/15 [History] Quetiapine Fumarate [Seroquel] 100 mg PO HS PRN 03/14/15 [History] LORazepam [Ativan] 0.5 mg PO BID PRN 04/15/18 [History] Metoprolol [Lopressor] 50 mg PO BID 04/15/18 [History] Promethazine HCl 25 mg PO BID 04/15/18 [History] Ranitidine HCl [Heartburn Relief] 150 mg PO BID 04/15/18 [History] Cholecalciferol (Vitamin D3) [Vitamin D3] 10,000 unit PO DAILY 04/16/18 [History] Furosemide [Lasix] 20 mg PO DAILY 04/20/18 [History] Potassium Chloride 20 meq PO DAILY 04/20/18 [History] Allergy/AdvReac Type Severity Reaction Status Date / Time No Known Allergies Allergy Verified 03/14/15 08:54 All Systems PM: A 10-system review of systems was performed and is negative for pertinent findings except as documented above in the HPI. - Constitutional Constitutional: no chills, no fever(s), no night sweats - EENT Eyes: no change in vision, no discharge, no pain, no photophobia Ears: no ear discharge, no ear pain, no tinnitus Nose, mouth and throat: no dysphagia, no nasal discharge, no neck pain, no sore throat - Breasts Breasts: as per HPI - Cardiovascular Cardiovascular ROS IM: chest pain, diaphoresis, dyspnea, dyspnea on exertion, no lightheadedness, no palpitations, no syncope - Respiratory Respiratory: dyspnea, dyspnea on exertion, no cough, no wheezing, no excessive phlegm production - Gastrointestinal Gastrointestinal: no abdominal pain, no diarrhea, no hematemesis, no hematochezia, no melena, no nausea, no vomiting - Genitourinary Genitourinary ROS male: as per HPI - Musculoskeletal Musculoskeletal ROS IM: as per HPI, no numbness, no tingling - Integumentary Integumentary IM: as per HPI, no rash, no unusual bruising - Neurological Neurological ROS: no confusion, no convulsions, no focal weakness, no numbness, no tingling, no tremor(s) - Psychiatric Psychiatric: as per HPI, anxiety, depression - Endocrine Endocrine IM: as per HPI - Hematologic/Lymphatic Hematologic/Lymphatic: no easy bruising - Allergic/Immunologic Allergic/Immunologic: as per HPI - Constitutional Vitals: Temp Pulse Resp BP Pulse Ox 97.5 F L 60 16 170/100 95 04/20/18 21:30 04/20/18 21:30 04/20/18 21:30 04/20/18 21:41 04/20/18 21:30 General appearance: Present: cooperative, mild distress (Chest pressure), A&O X 3, pleasant, obese, answers questions appropriately Exam: Patient examined at bedside. Pt. resting in bed and stating that he continues to have intermittent chest pressure that is centralized in chest w/radiation to left arm and neck. SOB. Denies any other sx or complaints at this time. 97.5F temp, HR 62, RR 20, BP 162/98, SPO2 100% on room air. - Head Head exam: Present: atraumatic, normocephalic - Eye Eye exam: Present: PERRL, conjuntiva pink, sclera anicteric Pupils: Present: PERRL - ENT ENT exam: Present: normal exam - Neck Neck exam general surgery: Present: normal inspection, supple, trachea midline. Absent: lymphadenopathy - Respiratory Respiratory exam: Present: CTAB. Absent: accessory muscle use, rales, rhonchi, wheezes - Cardiovascular Cardiovascular exam: Present: RRR, +S1, +S2. Absent: diastolic murmur, gallop, rubs, systolic murmur - GI/Abdominal GI/Abdominal exam: Present: normal bowel sounds, soft, no peritoneal signs. Absent: distended, tenderness - Rectal Rectal exam: Present: deferred - Additional comments: exam deferred. - Extremities Exam Extremities exam: Present: warm, radial pulses palpable and symmetrical. Absent: calf tenderness, cyanotic, pedal edema - Back Exam Back exam: Present: normal inspection - Neurological Exam Neurological exam: Present: alert, CN II-XII intact, oriented X3, no focal deficits. Absent: pronater drift, facial droop, speech deficit - Psychiatric Psychiatric exam: Present: normal affect, normal mood - Skin Skin exam: Present: dry, intact Internal Med - H&P Results - Labs CBC & Chem 7: 04/20/18 20:00 04/20/18 17:43 Labs: Short CBC 04/20/18 04/20/18 Range/Units 17:43 20:00 WBC 5.6 6.1 (4.3-11.1) K/mcL Hgb 15.7 15.6 (12.9-16.9) g/dL Hct 46.4 46.6 (37.5-50.1) % Plt Count 250 237 (140-400) K/mcL Neutrophils # 3.0 (1.6-8.9) K/mcL BMP 04/20/18 17:43 Sodium 137 Potassium 4.3 Chloride 104 Carbon Dioxide 25 BUN 19 Creatinine 1.06 Glucose 97 Calcium 9.7 Cardiac Enzymes 04/20/18 Range/Units 17:43 Troponin I < 0.03 (< 0.04) ng/mL - EKG Data EKG shows normal: sinus rhythm - EKG Data Prior EKG available for review: no Interpretation IM: normal EKG - Impressions ITS Impressions Chest X-Ray 04/20/18 17:33 IMPRESSION: 1. No acute abnormality. D/ / Kyle Sims MD / Kyle Sims MD Interpreting Provider: Kyle Sims MD Chest CTA 04/20/18 18:43 IMPRESSION: No evidence of pulmonary embolism or acute pulmonary abnormality. Fatty liver. D/ / Abhinav Moreno / Abhinav Moreno Interpreting Provider: Abhinav Moreno - Diagnostic Studies Chest x-ray Additional comments: Impressions Chest X-Ray 04/20/18 17:33 IMPRESSION: 1. No acute abnormality. D/ / Kyle Sims MD / Kyle Sims MD Interpreting Provider: Kyle Sims MD CT scan - chest Additional comments: Impressions Chest CTA 04/20/18 18:43 IMPRESSION: No evidence of pulmonary embolism or acute pulmonary abnormality. Fatty liver. D/ / Abhinav Moreno / Abhinav Moreno Interpreting Provider: Abhinav Moreno - Assessment and plan (1) Unstable angina Current Visit: Yes Status: Acute Assessment and plan: Acute unstable angina that began this afternoon while pt. was at rest. He reports that he was just discharged 04/16 for same sx. Pt. states he went for a walk and had no pain, but returned home and started having centralized CP w/radiation to left arm that presented as pressure and was intermittent that came on while at rest. Echocardiogram from 04/15/18 shows LVEF of 60%, normal LV chamber size, wall thickness, and function. Nuclear stress test report from 04/16/18 shows pharmacologic stress ECG negative for ischemia at level of heart rate achieved. Gated EF equals 66%. Perfusion imaging was negative for ischemia or infarct. Cardiology consult ordered in ED and I appreciate the consult and recommendations as always. ASA. 80 mg Lipitor ONCE. SL nitro PRN. Stair-step pain medications for CP. Initial troponin <0.03. Will trend. Heparin gtt started in ED and will continue d/t unstable angina. Continuous cardiac telemetry. Pt. is high risk for further morbidity and cardiac event d/t current unstable angina requiring heparin gtt and close monitoring, previous sx one week ago; and risk factors of HTN, obesity, and recent long-term tobacco use. Observation. (2) SOB (shortness of breath) Current Visit: Yes Status: Acute Assessment and plan: Acute SOB w/CP sx. Pt. denies home O2 use or hx of COPD or CHF. Supplemental O2 w/titration and SpO2 monitoring. (3) Nausea Current Visit: Yes Status: Acute Assessment and plan: Acute nausea accompanying CP sx. IVP Phenergan 12.5 mg Q6HR PRN for N/V. Monitor I&O. (4) Hypertension Current Visit: Yes Status: Chronic Assessment and plan: Hx of chronic HTN. Monitor pt. and VS. Continue pts. PO metoprolol. IVP hydralazine w/parameters ordered PRN. Qualifiers: Hypertension type: essential hypertension Qualified Code(s): I10 - Essential (primary) hypertension (5) GERD (gastroesophageal reflux disease) Current Visit: Yes Status: Chronic Assessment and plan: Hx of chronic GERD. GI cocktail in ED. Continue pts. PO ranitidine. IVP Phenergan 12.5 mg every 6 hours when necessary for nausea and vomiting. Qualifiers: Esophagitis presence: esophagitis presence not specified Qualified Code(s): K21.9 - Gastro-esophageal reflux disease without esophagitis (6) Anxiety and depression Current Visit: Yes Status: Chronic Assessment and plan: Hx of chronic anxiety and depression. Continue pts. Hydroxyzine, Zyprexa, and Seroquel. (7) DVT prophylaxis Current Visit: Yes Status: Acute Assessment and plan: Pt. placed on heparin gtt d/t current CP and unstable angina. Monitor pt. for signs of bleeding. - Time Spent With Patient Total time spent is greater than 50% in coordination of care (as documented) at patient's floor/unit and/or counseling patient: Greater than 35 minutes
[2018-04-20] MEDS ORDERED: *HR* LORazepam 0.5 MG TABLET PO PRN (23:13)
[2018-04-20] MEDS ORDERED: *HR* Promethazine 25 MG/ML VIAL IVP PRN (23:17)
[2018-04-21 05:45] LABS: Basophils % 0.7 %; Eosinophils # 0.1 K/mcL (0.0-0.6); Eosinophils % 2.2 %; Hematocrit 44.9 % (37.5-50.1); Hemoglobin 15.3 g/dL (12.9-16.9); Immature Granulocytes % 0.2 % (0-4); Lymphocytes % 50.9 %; Mean Corpuscular HGB Conc 34.1 g/dL (31.6-35.5); Mean Corpuscular Hemoglobin 29.4 pg (28.0-33.3); Mean Corpuscular Volume 86.2 fL (83.0-100.0); Mean Platelet Volume 8.6 fL (9.4-12.4); Monocytes # 0.6 K/mcL (0.0-1.3); Monocytes % 10.9 %; Neutrophils # 2.1 K/mcL (1.6-8.9); Platelet Count 220 K/mcL (140-400); Red Blood Count 5.21 M/mcL (4.19-5.50); Red Cell Distribution Width 13.7 % (11.5-14.5); Segmented Neutrophils % 35.1 %
[2018-04-21 06:05] LABS: Alanine Aminotransferase 63 Units/L (7-52); Albumin 3.8 g/dL (3.5-5.7); Albumin/Globulin Ratio 1.4 (1.1-2.2); Alkaline Phosphatase 51 Units/L (34-104); Aspartate Amino Transferase 25 Units/L (13-39); BUN/Creatinine Ratio 18 (6-26); Bilirubin,Total 0.5 mg/dL (0.3-1.0); Blood Urea Nitrogen 17 mg/dL (6-20); Calcium 9.2 mg/dL (8.6-10.3); Carbon Dioxide 24 mEq/L (23-29); Chloride 105 mEq/L (98-107); Chol/HDL Ratio 3.7 (0-4.9); Cholesterol 129 mg/dL (< 200); Globulin 2.8 g/dL (2.4-3.5); Glucose 102 mg/dL (70-105); HDL Cholesterol 35 mg/dL (40-59); LDL Cholesterol,Calculated 75 mg/dL (0-99); Osmolality,Calculated 286 (280-300); Potassium 3.7 mEq/L (3.5-5.1); Sodium 137 mEq/L (136-145); Total Protein 6.6 g/dL (6.4-8.9); Triglycerides 97 mg/dL (< 150); eGFR For Non-African Americans > 60 (> 60)
[2018-04-21 08:10] LABS: Estimated Average Glucose 128 mg/dl; Hemoglobin A1C 6.1 %
[2018-04-21] MEDS ORDERED: OLANZapine 10 MG TAB.RAPDIS PO SCH (09:00)
[2018-04-21] MEDS ORDERED: Aspirin Enteric Coated 81 MG Tablet PO SCH (09:00)
[2018-04-21] MEDS ORDERED: Famotidine 20 MG TABLET PO SCH (09:00)
[2018-04-21] MEDS ORDERED: Furosemide 20 MG TABLET PO SCH (09:00)
--- NOTE | 2018-04-21 09:26 | Cardiology Consult Note ---
<Brian Miller - Last Filed: 04/21/18 11:05> Date of Encounter: 04/21/18 Time of Encounter: 09:24 Assessment and Plan (1) Chest pain Status: Acute Atypical chest pain This pain reproducible by palpation of epigastric region EKG normal sinus rhythm without ST elevation or depression Nuclear stress test 04/16/2018 showed a gated EF of 66% negative for ischemia or infarct Echocardiogram 04/15/2018 LVEF of 60% with normal LV chamber size, thickness, function. patient also had a echocardiogram on 10/01/16 which showed LVEF of 60% and did not have any wall motion or valvular abnormalities. Patient's troponin less than 0.033 LDL and total cholesterol at goal EGD in 2011 showed gastritis. Plan: This is not ACS. Patient's chest pain is reproducible by palpation of the epigastric region. His chest pain was resolved with GI cocktail. Would recommend changing her medication from ranitidine to PPI. Discontinue heparin drip. If chest pain continues patient may follow up with cardiology for consideration of LHC. May need GI evaluation. Qualifiers: Chest pain type: unspecified Qualified Code(s): R07.9 - Chest pain, unspecified (2) Former smoker Status: Acute Patient is a former smoker quit in August 2017. (3) GERD (gastroesophageal reflux disease) Status: Chronic Uncontrolled Recommend changing ranitidine to PPI. Qualifiers: Esophagitis presence: esophagitis presence not specified Qualified Code(s): K21.9 - Gastro-esophageal reflux disease without esophagitis (4) Hypertension Status: Chronic Controlled Continue losartan Qualifiers: Hypertension type: essential hypertension Qualified Code(s): I10 - Essential (primary) hypertension Discussion w patient/family: The assessment and plan as outlined above was discussed with the patient and/or family members who expressed understanding and agreement. All questions were answered. Thank you for involving us in the care of your patient. Please call with any questions. History of Present Illness Consult date: 04/21/18 Consult reason: chest pain Chief complaint: chest pain History of present illness: Mr. Hernandez is a 47 year old male with history of prediabetes, previous smoker quit in August 2017, hypertension, GERD, anxiety, depression presents with chief complaint of chest pain that started yesterday afternoon while he was cleaning his apartment. Patient reports that chest pain was substernal radiating to left arm, intermittent, without exacerbating or relieving factors. Chest pain has continued to this morning. Patient was recently seen by Dr. Mahmood outpatient and underwent stress test and echocardiogram which were both normal. He does report nausea, shortness of breath, diaphoresis with the chest pain. He denies lightheadedness, syncope. Cardiology was consulted as there is concern for unstable angina. She reports family history of coronary artery disease in his mother. Patient says he was given GI cocktail during this admission which helped resolve the chest pain however it did come back. Past Med Surg Social Fam HX - Past Medical History Medical history: GERD, hypertension Psychiatric history: anxiety, depression - Past Surgical History Surgical History: cholecystectomy, other Additional surgical history: LE stents - Social History Smoking Status: Former smoker Packs per day: Smoked 2-3 PPD, Reports quitting in August 2017 Smokeless Tobacco Status: No Alcohol use: none Drug use: none - Family History Brother Race: Family Member Ethnicity: Non- Living Status: Still Living Hx Family Cardiac Disorders: Yes (HTN) Father Race: Family Member Ethnicity: Non- Living Status: Still Living Hx Family Cardiac Disorders: Yes (HTN, CAD) Hx Family Respiratory Disorders: No Hx Family Cancer: No Mother Race: Family Member Ethnicity: Non- Living Status: Still Living Hx Family Cardiac Disorders: No Hx Family Respiratory Disorders: No Hx Family Cancer: Yes (Breast Cancer) Hx Family Endocrine Disorder: No Hx Family Neuromuscular Disorders: No Hx Family Neurologic Disorders: No Hx Family HEENT Disorders: No Hx Family Autoimmune Disorders: No Sister Race: Family Member Ethnicity: Non- Living Status: Still Living Hx Family Medical Disorders: No Medications and Allergies RX: OLANZapine [Zyprexa] 20 mg PO DAILY 03/14/15 [History] RX: LORazepam [Ativan] 0.5 mg PO BID PRN 04/15/18 [History] RX: Ranitidine HCl [Heartburn Relief] 150 mg PO BID 04/15/18 [History] RX: Cholecalciferol (Vitamin D3) [Vitamin D3] 10,000 unit PO DAILY 04/16/18 [H istory] RX: Furosemide [Lasix] 20 mg PO DAILY 04/20/18 [History] Metoprolol [Lopressor] 12.5 mg PO BID #30 tablet 04/21/18 [Rx] Quetiapine Fumarate [SEROquel] 100 mg PO HS 04/21/18 [History] RX: Aspirin Enteric Coated [Aspirin EC] 81 mg PO DAILY #30 tablet. 04/21/18 [Rx] RX: Losartan Potassium 25 mg PO DAILY 04/21/18 [History] RX: Nitroglycerin [Nitrostat] 0.4 mg SL AD PRN 04/21/18 [History] RX: hydrOXYzine HCl [Hydroxyzine HCl] 25 mg PO BID PRN 04/21/18 [History] 3 Allergy/AdvReac Type Severity Reaction Status Date / Time No Known Allergies Allergy Verified 04/21/18 16:11 All Systems Review: The remainder of the systems were reviewed and are negative Review of Systems: Constitutional: Denies fever, chills HEENT: Denies headache, trauma, blurry vision, eye discharge, ear pain, ear discharge neck pain, sore throat, rhinorrhea Heart: Reports chest pain. Denies palpitations, LE edema Lungs: Denies shortness of breath cough Abdomen: Denies abdominal pain nausea vomiting diarrhea MSK: Denies back pain, falls, joint pain Kidney: Denies dysuria, hematuria Skin: Denies rash, ulcers Neuro: Denies numbness and tingling Psych: Reports anxiety, depression Physical Examination Vital Signs, Last 4 Hours Temp Pulse Resp BP Pulse Ox 04/21/18 08:00 93 04/21/18 07:00 97.6 F 53 17 113/72 93 General: Conversant, No Apparent Distress HEENT: Atraumatic, Normocephaly, Mucus Membranes Moist Neck: No JVD, Normal carotid pulses Cardiac: Reg Rate and Rhythm, Normal S1 and S2, No Murmur Lungs: Normal Breath Sounds, No Wheeze, Rales, Rhonchi Neuro: Alert and responsive, No focal deficits noted Abdomen: Soft, Other (Tender to palpation in the epigastric region which reproduces patient's chest pain) Skin: No rashes noted on visualized skin Musculoskeletal: No Chest Wall Tenderness Extremities: No Clubbing, No Cyanosis, No Edema, Normal Pulses Results 04/21/18 05:34 04/21/18 05:34 Lab Results 04/20/18 04/20/18 04/20/18 17:33 17:43 17:43 WBC 5.6 Hgb 15.7 Hct 46.4 Plt Count 250 INR 1.0 D-Dimer 1112 H Sodium 137 Potassium 4.3 Chloride 104 Carbon Dioxide 25 BUN 19 Creatinine 1.06 Glucose 97 Calcium 9.7 Magnesium Total Bilirubin AST ALT Alkaline Phosphatase Troponin I < 0.03 04/20/18 04/20/18 04/21/18 20:00 20:00 00:02 WBC 6.1 Hgb 15.6 Hct 46.6 Plt Count 237 INR 0.9 D-Dimer Sodium Potassium Chloride Carbon Dioxide BUN Creatinine Glucose Calcium Magnesium Total Bilirubin AST ALT Alkaline Phosphatase Troponin I < 0.03 04/21/18 04/21/18 04/21/18 05:34 05:34 05:34 WBC 5.9 Hgb 15.3 Hct 44.9 Plt Count 220 INR D-Dimer Sodium 137 Potassium 3.7 Chloride 105 Carbon Dioxide 24 BUN 17 Creatinine 0.95 Glucose 102 Calcium 9.2 Magnesium 2.0 Total Bilirubin 0.5 AST 25 ALT 63 H Alkaline Phosphatase 51 Troponin I < 0.03 Consult Discharge Plan - Plan Instructions: Angina (DC), Angina (GEN), Chest Pain (DC), Chest Pain (GEN) Referrals: Waleska Chance MD [Partnered Physician] - 04/22/18 11:00 am Teri Alcala MD [Primary Care Provider] - 04/23/18 9:20 am Prescriptions: RX: Aspirin Enteric Coated [Aspirin EC] 81 mg PO DAILY #30 tablet. Metoprolol [Lopressor] 12.5 mg PO BID #30 tablet <Debo Castellanos - Last Filed: 04/21/18 17:27> Date of Encounter: 04/21/18 - Attending Attestation I examined this patient and my medical decision-making was reviewed with the Resident Physician. I agree with the documented findings, disposition and treatment plan as described. Mr. Hernandez present with atypical chest pain. Troponins negative. No acute ECG changes. Recent Stress test negative for ischemia. AAOx3 on exam, NAD Discomfort reproducible on mid epigastric palpation No cardiac murmur or gallope, normal breath sounds, no LE edema Labs reviewed ECG reviewed Impression: 1. Atypical chest pain: Troponins negative, no acute ECG findings. Has reproducible mid epigastric discomfort improved with GI cocktail. EGD in 2011 demonstrated gastritis. Recent outpatient stress testing negative for ischemia or infarct, normal LVEF. Further cardiac testing not warranted at this time. Recommend addition of PPI to [id number] and outpatient GI evaluation. Will sign off. Recommend general outpatient Cardiology follow up 3-4 weeks. Please call with questions. Assessment and Plan Discussion w patient/family: The assessment and plan as outlined above was discussed with the patient and/or family members who expressed understanding and agreement. All questions were answered. Thank you for involving us in the care of your patient. Please call with any questions. History of Present Illness History of present illness: Mr. Hernandez is a 47 year old male All Systems Review: The remainder of the systems were reviewed and are negative Physical Examination Vital Signs, Last 4 Hours Temp Pulse Resp BP Pulse Ox 04/21/18 15:21 98.3 F 72 16 111/70 94 Results 04/21/18 05:34 04/21/18 05:34 Lab Results 04/20/18 04/20/18 04/20/18 17:33 17:43 17:43 WBC 5.6 Hgb 15.7 Hct 46.4 Plt Count 250 INR 1.0 D-Dimer 1112 H Sodium 137 Potassium 4.3 Chloride 104 Carbon Dioxide 25 BUN 19 Creatinine 1.06 Glucose 97 Calcium 9.7 Magnesium Total Bilirubin AST ALT Alkaline Phosphatase Troponin I < 0.03 04/20/18 04/20/18 04/21/18 20:00 20:00 00:02 WBC 6.1 Hgb 15.6 Hct 46.6 Plt Count 237 INR 0.9 D-Dimer Sodium Potassium Chloride Carbon Dioxide BUN Creatinine Glucose Calcium Magnesium Total Bilirubin AST ALT Alkaline Phosphatase Troponin I < 0.03 04/21/18 04/21/18 04/21/18 05:34 05:34 05:34 WBC 5.9 Hgb 15.3 Hct 44.9 Plt Count 220 INR D-Dimer Sodium 137 Potassium 3.7 Chloride 105 Carbon Dioxide 24 BUN 17 Creatinine 0.95 Glucose 102 Calcium 9.2 Magnesium 2.0 Total Bilirubin 0.5 AST 25 ALT 63 H Alkaline Phosphatase 51 Troponin I < 0.03 04/21/18 12:43 WBC Hgb Hct Plt Count INR D-Dimer Sodium Potassium Chloride Carbon Dioxide BUN Creatinine Glucose Calcium Magnesium Total Bilirubin AST ALT Alkaline Phosphatase Troponin I < 0.03
--- NOTE | 2018-04-21 15:19 | Discharge Summary ---
- NOTES TO OUTPATIENT PROVIDER Notes to Outpatient Provider: Follow up with PCP in one week. Follow-up with the mushroom cutter Dr. Mahmood as scheduled. Please take metoprolol 12.5 mg PO BID instead of 50mg since your heart rate is low Orders not resulted at time of discharge: Pending orders 04/22/18 04:00 Complete Blood Count [HEME] AM 0400 Comprehensive Metabolic Panel AM 04004/23/18 04:00 Complete Blood Count [HEME] AM 0400 Comprehensive Metabolic Panel AM 04004/24/18 04:00 Complete Blood Count [HEME] AM 0400 Comprehensive Metabolic Panel AM 0400 Date of Encounter: 04/21/18 Time of Encounter: 15:13 - Discharge Diagnosis (1) Chest pain Priority: Primary Status: Acute Qualifiers: Chest pain type: unspecified Qualified Code(s): R07.9 - Chest pain, unspecified (2) Hypertension Priority: Secondary Status: Chronic Qualifiers: Hypertension type: essential hypertension Qualified Code(s): I10 - Essential (primary) hypertension (3) DVT prophylaxis Priority: Secondary Status: Acute (4) GERD (gastroesophageal reflux disease) Priority: Secondary Status: Chronic Qualifiers: Esophagitis presence: esophagitis presence not specified Qualified Code(s): K21.9 - Gastro-esophageal reflux disease without esophagitis (5) Anxiety and depression Priority: Secondary Status: Chronic (6) SOB (shortness of breath) Priority: Secondary Status: Acute (7) Nausea Priority: Secondary Status: Acute Hospital course: Mr. Hernandez is a 47 year old male w/PMH of HTN, GERD, and anxiety w/depression presents from the ED w/CC of CP that began this afternoon while pt was at rest. Pt was recently admitted here for chest pain, had Echocardiogram and Stress Test which were completely normal. Patient was admitted in the hospital and placed him on cardiac nurse practitioner. Checked his serial troponin which were negative. I reviewed his EKG which showed sinus rhythm with no ST, T changes . No acute ischemic changes noticed . Patient was evaluated by mushroom cutter, who thinks his chest pain is atypical and no further workup recommended. I did notice his heart rate was slightly lower so cut down on his Metoprolol to 12.5mg PO BID. Recommend to f/u with PCP and Card as an out pt. He does have MADISYN, so scheduled for an out pt sleep study through Dr. Chance's office. - Time Spent with Patient Total time spent providing and/or coordinating discharge services: - Discharge Medications Prescriptions: Aspirin Enteric Coated [Aspirin EC] 81 mg PO DAILY #30 tablet. Metoprolol [Lopressor] 12.5 mg PO BID #30 tablet Home Medications: HydrOXYzine 50 mg PO Q8H PRN 03/14/15 [History] OLANZapine [Zyprexa] 20 mg PO DAILY 03/14/15 [History] Quetiapine Fumarate [Seroquel] 100 mg PO HS PRN 03/14/15 [History] LORazepam [Ativan] 0.5 mg PO BID PRN 04/15/18 [History] Promethazine HCl 25 mg PO BID 04/15/18 [History] Ranitidine HCl [Heartburn Relief] 150 mg PO BID 04/15/18 [History] Cholecalciferol (Vitamin D3) [Vitamin D3] 10,000 unit PO DAILY 04/16/18 [History] Furosemide [Lasix] 20 mg PO DAILY 04/20/18 [History] Potassium Chloride 20 meq PO DAILY 04/20/18 [History] Aspirin Enteric Coated [Aspirin EC] 81 mg PO DAILY #30 tablet. 04/21/18 [Rx] Metoprolol [Lopressor] 12.5 mg PO BID #30 tablet 04/21/18 [Rx] Allergies/Adverse Reactions: Allergy/AdvReac Type Severity Reaction Status Date / Time No Known Allergies Allergy Verified 03/14/15 08:54 Date of admission: 04/20/18 20:11 Primary care physician: Teri Alcala MD Consults: 04/20/18 19:40 Consult to Cardiology [CONS] Stat Comment: Consulting Provider: Cardiology Mary Ellen Reason for Consult: cardiac catherization evaluation, unstable angina Time Notified: 19:41 Call Completed: Yes 04/20/18 20:56 Consult to [employer] Offbearer [CONS] Routine Reason for SW Consult: Please assess patient for possible home needs for post-discharge planning. - Constitutional Vitals: Temp Pulse Resp BP Pulse Ox 97.4 F L 50 17 102/59 96 04/21/18 11:00 04/21/18 11:00 04/21/18 11:00 04/21/18 11:00 04/21/18 11:00 General appearance: Present: cooperative, A&O X 3, pleasant, obese, answers questions appropriately Exam: Gen: Alert, awake, Oriented to time,place and person Chest: Diminished breath sounds B/L, No wheezing, No crackles, No rales Heart: S1S2+ niurka, No murmurs Abd: Soft, NT, BS +, No organomegaly Ext: No edema, pulses are palpable, No calf tenderness Neuro : Benign findings Skin: No rash. - Patient Status Disposition: Home, Self-Care Condition: Good Overall status at discharge: patient is back to baseline - Discharge Instructions Follow Up With: Teri Alcala MD [Primary Care Provider] - 04/23/18 9:20 am - Diet and Activity Activity: increase activity as tolerated Diet: low salt diet
[2018-04-21 15:23] VITALS: BP 111/70
--- NOTE | 2018-04-22 17:21 | Electrocardiograph Report ---
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
== END 2018-04-21 16:03 | disposition home or self-care (01) ==
LOC: EMEROOARM 17:29 → 3BNU 17:29 → SUATTDRO 20:11 → 3BNU 20:45
PROVIDERS: ADMIT Pediatrics; ATTEND Family Medicine

== ENCOUNTER 2019-04-13 14:30 | Inpatient (IN) ==
[2019-04-13] MEDS ORDERED: Naloxone 0.4 MG/ML INJ IVP PRN (17:57)
[2019-04-13] MEDS ORDERED: Acetaminophen 325 MG TABLET PO PRN (17:57)
[2019-04-13] MEDS ORDERED: Ondansetron 4 MG/2 ML VIAL IVP PRN (17:57)
[2019-04-13] MEDS ORDERED: Nitroglycerin 0.4 MG TAB.SUBL SL PRN (19:56)
[2019-04-13 21:03] LABS: Basophils # 0.1 K/mcL (0.0-0.2); Eosinophils # 0.1 K/mcL (0.0-0.6); Eosinophils % 2.4 %; Hematocrit 44.5 % (37.5-50.1); Hemoglobin 15.1 g/dL (12.9-16.9); Immature Granulocytes % 0.2 % (0-4); Lymphocytes # 2.2 K/mcL (0.6-4.6); Lymphocytes % 45.1 %; Mean Corpuscular HGB Conc 33.9 g/dL (31.6-35.5); Mean Corpuscular Hemoglobin 28.2 pg (28.0-33.3); Mean Platelet Volume 8.5 fL (9.4-12.4); Monocytes # 0.5 K/mcL (0.0-1.3); Monocytes % 10.6 %; Platelet Count 273 K/mcL (140-400); Red Blood Count 5.36 M/mcL (4.19-5.50); Red Cell Distribution Width 14.1 % (11.5-14.5); Segmented Neutrophils % 40.7 %; White Blood Count 4.9 K/mcL (4.3-11.1)
[2019-04-13 21:20] LABS: Alanine Aminotransferase 61 Units/L (7-52); Albumin 3.9 g/dL (3.5-5.7); Albumin/Globulin Ratio 1.3 (1.1-2.2); Alkaline Phosphatase 58 Units/L (34-104); Aspartate Amino Transferase 25 Units/L (13-39); BUN/Creatinine Ratio 11 (6-26); Bilirubin,Total 0.3 mg/dL (0.3-1.0); Blood Urea Nitrogen 13 mg/dL (6-20); Calcium 9.4 mg/dL (8.6-10.3); Carbon Dioxide 28 mEq/L (23-29); Chloride 102 mEq/L (98-107); Glucose 128 mg/dL (70-105); Magnesium 2.1 mg/dL (1.6-2.6); Osmolality,Calculated 284 (280-300); Sodium 136 mEq/L (136-145); Total Protein 6.9 g/dL (6.4-8.9); eGFR For African Americans > 60 (> 60); eGFR For Non-African Americans > 60 (> 60)
[2019-04-13] MEDS ORDERED: *HR* Heparin 5,000 UNIT/ML VIAL SQ SCH (22:00)
[2019-04-14 06:33] LABS: Basophils % 0.7 %; Eosinophils # 0.1 K/mcL (0.0-0.6); Eosinophils % 2.5 %; Hematocrit 43.8 % (37.5-50.1); Hemoglobin 14.7 g/dL (12.9-16.9); Immature Granulocytes % 0.2 % (0-4); Lymphocytes # 2.5 K/mcL (0.6-4.6); Lymphocytes % 44.8 %; Mean Corpuscular HGB Conc 33.6 g/dL (31.6-35.5); Mean Corpuscular Hemoglobin 28.3 pg (28.0-33.3); Mean Corpuscular Volume 84.2 fL (83.0-100.0); Mean Platelet Volume 9.1 fL (9.4-12.4); Monocytes # 0.6 K/mcL (0.0-1.3); Monocytes % 11.3 %; Neutrophils # 2.3 K/mcL (1.6-8.9); Platelet Count 250 K/mcL (140-400); Red Cell Distribution Width 13.9 % (11.5-14.5); Segmented Neutrophils % 40.5 %; White Blood Count 5.7 K/mcL (4.3-11.1)
[2019-04-14 06:51] LABS: BUN/Creatinine Ratio 12 (6-26); Blood Urea Nitrogen 14 mg/dL (6-20); Carbon Dioxide 25 mEq/L (23-29); Chloride 103 mEq/L (98-107); Glucose 97 mg/dL (70-105); Osmolality,Calculated 286 (280-300); Potassium 3.7 mEq/L (3.5-5.1); Sodium 138 mEq/L (136-145); eGFR For African Americans > 60 (> 60); eGFR For Non-African Americans > 60 (> 60)
[2019-04-14 06:55] LABS: Chol/HDL Ratio 6.9 (0-4.9)
[2019-04-14 07:15] LABS: Folate 4.8 ng/mL (3.0-16.0)
[2019-04-14 08:29] LABS: Estimated Average Glucose 143 mg/dl
[2019-04-14] MEDS: Aspirin 81 MG TAB.CHEW PO SCH (09:35)
[2019-04-14] MEDS ORDERED: Dextrose Gel 15 GM/37.5 ML TUBE PO PRN ×2 (14:40)
[2019-04-14] MEDS ORDERED: *HR* Dextrose 50 % in Water (Syg) 50 ML SYRINGE IVP PRN (14:40)
[2019-04-14] MEDS ORDERED: D5% in Water 1,000 ML IVC PRN (14:40)
[2019-04-14] MEDS: Insulin LISPRO 300 UNITS/3 ML VIAL SQ SCH (16:59)
[2019-04-14] MEDS ORDERED: Insulin LISPRO 300 UNITS/3 ML VIAL SQ SCH (21:00)
[2019-04-15 05:27] LABS: Basophils # 0.1 K/mcL (0.0-0.2); Basophils % 0.7 %; Eosinophils # 0.1 K/mcL (0.0-0.6); Hematocrit 46.7 % (37.5-50.1); Hemoglobin 15.5 g/dL (12.9-16.9); Immature Granulocytes % 0.1 % (0-4); Lymphocytes # 2.9 K/mcL (0.6-4.6); Lymphocytes % 42.4 %; Mean Corpuscular HGB Conc 33.2 g/dL (31.6-35.5); Mean Corpuscular Hemoglobin 28.3 pg (28.0-33.3); Mean Corpuscular Volume 85.2 fL (83.0-100.0); Mean Platelet Volume 8.7 fL (9.4-12.4); Monocytes # 0.7 K/mcL (0.0-1.3); Monocytes % 10.4 %; Neutrophils # 3.1 K/mcL (1.6-8.9); Platelet Count 258 K/mcL (140-400); Red Blood Count 5.48 M/mcL (4.19-5.50); Segmented Neutrophils % 44.4 %; White Blood Count 6.9 K/mcL (4.3-11.1)
[2019-04-15 05:48] LABS: BUN/Creatinine Ratio 13 (6-26); Blood Urea Nitrogen 15 mg/dL (6-20); Calcium 9.5 mg/dL (8.6-10.3); Carbon Dioxide 26 mEq/L (23-29); Chloride 101 mEq/L (98-107); Glucose 109 mg/dL (70-105); Osmolality,Calculated 283 (280-300); Potassium 3.8 mEq/L (3.5-5.1); Sodium 136 mEq/L (136-145); eGFR For African Americans > 60 (> 60); eGFR For Non-African Americans > 60 (> 60)
[2019-04-15] MEDS: Aspirin 81 MG TAB.CHEW PO SCH (08:54)
[2019-04-15] MEDS: Insulin LISPRO 300 UNITS/3 ML VIAL SQ SCH ×2 (08:54→12:36)
[2019-04-15] MEDS ORDERED: OLANZapine 10 MG TAB.RAPDIS PO SCH (09:00)
[2019-04-15 15:32] VITALS: BP 107/70
== END 2019-04-15 16:15 | disposition home or self-care (01) | DRG 69 ==
LOC: 3BNU → SUATTDRO 17:01
PROVIDERS: ADMIT Pharmacist; ATTEND Pharmacist

== ENCOUNTER 2019-12-23 15:51 | Inpatient (IN) ==
[2019-12-23] MEDS ORDERED: Aspirin 81 MG TAB.CHEW PO STA (16:35)
[2019-12-23] MEDS ORDERED: 0.9 % Sodium Chloride 1,000 ML IVC ONE (16:35)
[2019-12-23 16:41] LABS: Basophils % 0.7 %; Eosinophils # 0.2 K/mcL (0.0-0.6); Eosinophils % 2.9 %; Hematocrit 42.6 % (37.5-50.1); Hemoglobin 13.9 g/dL (12.9-16.9); Immature Granulocytes % 0.2 % (0-4); Lymphocytes # 2.4 K/mcL (0.6-4.6); Lymphocytes % 42.8 %; Mean Corpuscular HGB Conc 32.6 g/dL (31.6-35.5); Mean Corpuscular Hemoglobin 27.3 pg (28.0-33.3); Mean Corpuscular Volume 83.7 fL (83.0-100.0); Mean Platelet Volume 8.6 fL (9.4-12.4); Monocytes # 0.7 K/mcL (0.0-1.3); Monocytes % 13.1 %; Neutrophils # 2.2 K/mcL (1.6-8.9); Platelet Count 257 K/mcL (140-400); Red Blood Count 5.09 M/mcL (4.19-5.50); Red Cell Distribution Width 15.1 % (11.5-14.5); Segmented Neutrophils % 40.3 %; White Blood Count 5.5 K/mcL (4.3-11.1)
[2019-12-23] MEDS ORDERED: Isovue-370 500 ML BOTTLE IVP ONE (16:41)
[2019-12-23 16:48] LABS: INR 0.9; Prothrombin Time 10.4 Seconds (9.4-12.1)
[2019-12-23 17:13] LABS: BUN/Creatinine Ratio 12 (6-26); Blood Urea Nitrogen 14 mg/dL (6-20); Calcium 9.6 mg/dL (8.6-10.3); Carbon Dioxide 25 mEq/L (23-29); Chloride 106 mEq/L (98-107); Glucose 96 mg/dL (70-105); Osmolality,Calculated 286 (280-300); Potassium 4.1 mEq/L (3.5-5.1); Sodium 138 mEq/L (136-145); Troponin I < 0.03 ng/mL (< 0.04); eGFR For African Americans > 60 (> 60); eGFR For Non-African Americans > 60 (> 60)
[2019-12-23] MEDS ORDERED: Naloxone 0.4 MG/ML INJ IVP PRN (18:07)
[2019-12-23] MEDS ORDERED: Ondansetron 4 MG/2 ML VIAL IVP PRN (18:07)
[2019-12-23] MEDS ORDERED: Perflutren Lipid Microsphere 1.3 ML in 0.9 % Sodium Chloride 8.7 ML IVP PRN ×2 (18:12→18:28)
[2019-12-23] MEDS ORDERED: *HR* Dextrose 50 % in Water (Vial) 50 ML VIAL IVP PRN (18:27)
[2019-12-23] MEDS ORDERED: D5% in Water 1,000 ML IVC PRN (18:27)
[2019-12-23] MEDS ORDERED: Dextrose Gel 15 GM/37.5 ML TUBE PO PRN ×2 (18:27)
[2019-12-23] MEDS: Insulin LISPRO 300 UNITS/3 ML VIAL SQ SCH (20:08)
[2019-12-23] MEDS: QUEtiapine Fumarate 100 MG TABLET PO SCH (20:21)
[2019-12-23] MEDS: OLANZapine 10 MG TAB.RAPDIS PO SCH (20:22)
[2019-12-24 00:54] LABS: Basophils % 0.8 %; Eosinophils # 0.2 K/mcL (0.0-0.6); Eosinophils % 2.9 %; Hematocrit 39.6 % (37.5-50.1); Hemoglobin 12.9 g/dL (12.9-16.9); Lymphocytes # 2.8 K/mcL (0.6-4.6); Lymphocytes % 52.7 %; Mean Corpuscular HGB Conc 32.6 g/dL (31.6-35.5); Mean Corpuscular Volume 82.8 fL (83.0-100.0); Mean Platelet Volume 8.8 fL (9.4-12.4); Monocytes # 0.6 K/mcL (0.0-1.3); Neutrophils # 1.7 K/mcL (1.6-8.9); Platelet Count 236 K/mcL (140-400); Red Blood Count 4.78 M/mcL (4.19-5.50); Red Cell Distribution Width 15.2 % (11.5-14.5); Segmented Neutrophils % 31.6 %; White Blood Count 5.3 K/mcL (4.3-11.1)
[2019-12-24 01:14] LABS: BUN/Creatinine Ratio 11 (6-26); Blood Urea Nitrogen 12 mg/dL (6-20); Calcium 8.9 mg/dL (8.6-10.3); Carbon Dioxide 24 mEq/L (23-29); Chloride 108 mEq/L (98-107); Glucose 98 mg/dL (70-105); Magnesium 1.8 mg/dL (1.6-2.6); Osmolality,Calculated 290 (280-300); Phosphorous 3.3 mg/dL (2.7-4.5); Potassium 3.8 mEq/L (3.5-5.1); Sodium 140 mEq/L (136-145); eGFR For African Americans > 60 (> 60); eGFR For Non-African Americans > 60 (> 60)
[2019-12-24] MEDS: *HR* Heparin 5,000 UNIT/ML VIAL SQ SCH ×2 (05:17→17:38)
[2019-12-24] MEDS ORDERED: Regadenoson 0.4 MG/5 ML SYRINGE IVP ONE (06:24)
[2019-12-24] MEDS: Insulin LISPRO 300 UNITS/3 ML VIAL SQ SCH ×4 (08:13→20:24)
[2019-12-24 08:25] LABS: Chol/HDL Ratio 3.4 (0-4.9); Cholesterol 109 mg/dL (< 200); HDL Cholesterol 32 mg/dL (40-59); LDL Cholesterol,Calculated 57 mg/dL (< 100); Triglycerides 100 mg/dL (< 150)
[2019-12-24 08:51] LABS: Estimated Average Glucose 134 mg/dl
[2019-12-24] MEDS: Famotidine 20 MG TABLET PO SCH (09:48)
[2019-12-24] MEDS: Aspirin Enteric Coated 81 MG Tablet PO SCH (09:48)
[2019-12-24] MEDS ORDERED: Isovue-370 500 ML BOTTLE IVP ONE (13:29)
[2019-12-24] MEDS ORDERED: Nitroglycerin 0.4 MG TAB.SUBL SL PRN (13:35)
[2019-12-24] MEDS: 0.9 % Sodium Chloride 1,000 ML IVC SCH (15:42)
[2019-12-24] MEDS: QUEtiapine Fumarate 100 MG TABLET PO SCH (20:18)
[2019-12-24] MEDS: OLANZapine 10 MG TAB.RAPDIS PO SCH (20:18)
[2019-12-25] MEDS: *HR* Heparin 5,000 UNIT/ML VIAL SQ SCH ×2 (05:08→17:21)
[2019-12-25 06:30] LABS: Basophils % 0.8 %; Eosinophils # 0.2 K/mcL (0.0-0.6); Eosinophils % 3.1 %; Hematocrit 44.4 % (37.5-50.1); Hemoglobin 13.9 g/dL (12.9-16.9); Lymphocytes % 40.2 %; Mean Corpuscular HGB Conc 31.3 g/dL (31.6-35.5); Mean Corpuscular Hemoglobin 26.7 pg (28.0-33.3); Mean Corpuscular Volume 85.2 fL (83.0-100.0); Mean Platelet Volume 8.7 fL (9.4-12.4); Monocytes # 0.5 K/mcL (0.0-1.3); Monocytes % 10.1 %; Neutrophils # 2.2 K/mcL (1.6-8.9); Platelet Count 240 K/mcL (140-400); Red Blood Count 5.21 M/mcL (4.19-5.50); Red Cell Distribution Width 15.7 % (11.5-14.5); Segmented Neutrophils % 45.8 %; White Blood Count 4.9 K/mcL (4.3-11.1)
[2019-12-25 06:54] LABS: BUN/Creatinine Ratio 11 (6-26); Blood Urea Nitrogen 13 mg/dL (6-20); Calcium 9.2 mg/dL (8.6-10.3); Carbon Dioxide 26 mEq/L (23-29); Chloride 107 mEq/L (98-107); Glucose 104 mg/dL (70-105); Osmolality,Calculated 288 (280-300); Potassium 3.9 mEq/L (3.5-5.1); Sodium 139 mEq/L (136-145); eGFR For African Americans > 60 (> 60); eGFR For Non-African Americans > 60 (> 60)
[2019-12-25] MEDS: Insulin LISPRO 300 UNITS/3 ML VIAL SQ SCH ×4 (07:53→21:10)
[2019-12-25] MEDS: Famotidine 20 MG TABLET PO SCH (09:54)
[2019-12-25] MEDS: Aspirin Enteric Coated 81 MG Tablet PO SCH (09:54)
[2019-12-25] MEDS: 0.9 % Sodium Chloride 1,000 ML IVC SCH (11:58)
[2019-12-25] MEDS ORDERED: *HR* Heparin 10,000 UNIT/10 ML VIAL ONE (14:40)
[2019-12-25] MEDS ORDERED: 0.9 % Sodium Chloride 1,000 ML ONE ×2 (14:40→14:43)
[2019-12-25] MEDS ORDERED: Heparin 1,000 UNITS/500 mL 500 ML ONE (14:40)
[2019-12-25] MEDS ORDERED: ISOVUE-370 200 ML INFUS..BTL ONE (14:40)
[2019-12-25] MEDS ORDERED: Nitroglycerin 1,000 MCG/10 ML VIAL IV ONE (14:41)
[2019-12-25] MEDS ORDERED: *HR* FentaNYL (PF) 100 MCG/2 ML VIAL ONE (15:02)
[2019-12-25] MEDS ORDERED: *HR* Midazolam HCl 2 MG/2 ML VIAL ONE (15:02)
[2019-12-25] MEDS: OLANZapine 10 MG TAB.RAPDIS PO SCH (21:04)
[2019-12-25] MEDS: QUEtiapine Fumarate 100 MG TABLET PO SCH (21:04)
[2019-12-26 02:47] LABS: Basophils % 0.6 %; Eosinophils # 0.2 K/mcL (0.0-0.6); Eosinophils % 3.3 %; Hematocrit 42.4 % (37.5-50.1); Hemoglobin 13.8 g/dL (12.9-16.9); Immature Granulocytes % 0.2 % (0-4); Lymphocytes % 41.4 %; Mean Corpuscular HGB Conc 32.5 g/dL (31.6-35.5); Mean Corpuscular Hemoglobin 27.5 pg (28.0-33.3); Mean Corpuscular Volume 84.6 fL (83.0-100.0); Mean Platelet Volume 8.8 fL (9.4-12.4); Monocytes # 0.4 K/mcL (0.0-1.3); Monocytes % 9.1 %; Neutrophils # 2.2 K/mcL (1.6-8.9); Platelet Count 212 K/mcL (140-400); Red Blood Count 5.01 M/mcL (4.19-5.50); Red Cell Distribution Width 15.4 % (11.5-14.5); Segmented Neutrophils % 45.4 %; White Blood Count 4.9 K/mcL (4.3-11.1)
[2019-12-26 03:09] LABS: BUN/Creatinine Ratio 14 (6-26); Blood Urea Nitrogen 16 mg/dL (6-20); Calcium 8.8 mg/dL (8.6-10.3); Carbon Dioxide 25 mEq/L (23-29); Chloride 106 mEq/L (98-107); Glucose 107 mg/dL (70-105); Osmolality,Calculated 288 (280-300); Potassium 3.7 mEq/L (3.5-5.1); Sodium 138 mEq/L (136-145); eGFR For African Americans > 60 (> 60); eGFR For Non-African Americans > 60 (> 60)
[2019-12-26] MEDS: *HR* Heparin 5,000 UNIT/ML VIAL SQ SCH (05:31)
[2019-12-26] MEDS: Insulin LISPRO 300 UNITS/3 ML VIAL SQ SCH (08:10)
[2019-12-26] MEDS: Famotidine 20 MG TABLET PO SCH (08:37)
[2019-12-26] MEDS: Aspirin Enteric Coated 81 MG Tablet PO SCH (08:38)
[2019-12-26 10:52] VITALS: BP 109/74
== END 2019-12-26 11:40 | disposition home or self-care (01) | DRG 287 ==
LOC: EMEROOARM 15:51 → 3BNU 15:51 → SUATTDRO 18:23 → 3BNU 19:33 → SUATTDRO 12-25 13:47
PROVIDERS: ADMIT Student in an Organized Health Care Education/Training Program; ATTEND Nurse Practitioner Adult Health